=== PATIENT | female | born 1980 | race Caucasian/White ===

== ENCOUNTER 2025-06-16 17:31 | Emergency (ER) | payer MEDICAID ==
[~2025-06-16] VITALS: Ht 167.6 cm; Wt 76.0 kg
[2025-06-16 17:36] VITALS: O2SAT 96
[2025-06-16] MEDS: ONDANSETRON HCL 4MG TABLET PO ONE (18:59)
[2025-06-16] MEDS: ACETAMINOPHEN 325MG TABLET PO ONE (18:59)
[2025-06-16 19:14] LABS: BASOPHILS % 0.1 % (0.0-2.0); EOSINOPHILS % 0.8 % (0.0-5.0); HEMATOCRIT. 41.7 % (36.0-48.0); HEMOGLOBIN. 13.7 g/dL (12.0-16.0); LYMPHOCYTES % 30.7 % (20.0-50.0); MEAN PLATELET VOLUME 9.2 fl (7.4-10.4); MONOCYTES % 7.6 % (2.0-8.0); NEUTROPHILS % 60.8 % (40.0-76.0); PLATELET 213 x1000/uL (130-400); RED BLOOD CELL COUNT 4.79 mill/uL (4.2-5.4); RED CELL DISTRIBUTION WIDTH 14.3 % (11.6-14.6)
[2025-06-16 19:29] LABS: CREATININE 0.5 mg/dL (0.6-1.0); UREA NITROGEN BLOOD 15 mg/dL (9-23)
[2025-06-16 19:30] LABS: ASPARTATE AMINOTRANSFERASE 21 IU/L (<34)
[2025-06-16 19:31] LABS: BILIRUBIN DIRECT < 0.1 mg/dL (<=3.0); BILIRUBIN TOTAL 0.4 mg/dL (0.1-1.0); PROTEIN TOTAL 6.9 g/dL (6.0-8.3)
[2025-06-16 19:43] LABS: HCG SCREEN NEGATIVE
[2025-06-16] MEDS ORDERED: NAPR-1176 MT (19:53)
[2025-06-16 20:29] VITALS: BP 124/68; PULSE 71; RESP 16; TEMP 36.7; O2SAT 98
== END 2025-06-16 20:30 | disposition home or self-care (01) ==
LOC: ER 17:31
DX: R10.13 Epigastric pain (principal)
CPT/HCPCS: 99284; 80076; 80048; 81025; 84703; 85025; 36415; 93005; Q0162